=== PATIENT | female | born 2005 | race Caucasian/White ===

== ENCOUNTER 2025-07-26 00:45 | Emergency (ER) | payer OTHER ==
[~2025-07-26] VITALS: Ht 167.6 cm; Wt 64.0 kg
[2025-07-26 00:47] VITALS: O2SAT 96
[2025-07-26] MEDS: KETOROLAC 15MG/ML VIAL IV ONE (01:32)
[2025-07-26 01:58] LABS: BASOPHILS % 0.8 % (0.0-2.0); EOSINOPHILS % 1.1 % (0.0-5.0); HEMATOCRIT. 39.9 % (36.0-48.0); HEMOGLOBIN. 13.4 g/dL (12.0-16.0); LYMPHOCYTES % 54.5 % (20.0-50.0); MEAN PLATELET VOLUME 9.7 fl (7.4-10.4); MONOCYTES % 5.2 % (2.0-8.0); NEUTROPHILS % 38.4 % (40.0-76.0); PLATELET 204 x1000/uL (130-400); RED BLOOD CELL COUNT 4.60 mill/uL (4.2-5.4); RED CELL DISTRIBUTION WIDTH 13.9 % (11.6-14.6)
[2025-07-26 02:07] LABS: CREATININE 0.8 mg/dL (0.6-1.0); UREA NITROGEN BLOOD 11 mg/dL (9-23)
[2025-07-26 02:09] LABS: ASPARTATE AMINOTRANSFERASE 24 IU/L (<34); BILIRUBIN TOTAL 1.4 mg/dL (0.1-1.0); PROTEIN TOTAL 8.3 g/dL (6.0-8.3)
[2025-07-26 02:43] LABS: HCG SCREEN NEGATIVE
[2025-07-26] MEDS: ACETAMINOPHEN 325MG TABLET PO ONE (05:25)
[2025-07-26] MEDS ORDERED: NAPR-1164 MT (05:31)
[2025-07-26 05:39] VITALS: BP 98/65; PULSE 62; RESP 13; TEMP 36.6; O2SAT 99
== END 2025-07-26 05:49 | disposition home or self-care (01) ==
LOC: ER 01:12
DX: M54.2 Cervicalgia (principal); M54.9 Dorsalgia, unspecified
CPT/HCPCS: 99291; 70450; 96374; 80053; 81025; 84703; 85025; 36415; 71045; 72170; 72125; J1885